=== PATIENT | male | born 2000 | race Caucasian/White ===

== ENCOUNTER 2024-02-04 15:01 | Emergency (ER) | payer MEDICAID ==
[~2024-02-04] VITALS: Ht 172.7 cm; Wt 150.0 kg
[2024-02-04] MEDS ORDERED: CARB15DR91 RIGHT EAR (16:46)
[2024-02-04 17:28] VITALS: BP 110/60; PULSE 78; RESP 14; TEMP 98.2; O2SAT 98
== END 2024-02-04 17:36 | disposition home or self-care (01) ==
LOC: ER 15:02
DX: H61.23 Impacted cerumen, bilateral (principal); Z79.899 Other long term (current) drug therapy
CPT/HCPCS: 69209; 99282